=== PATIENT | male | born 1955 | race Caucasian/White ===

== ENCOUNTER 2024-11-23 11:21 | Observation (INO) ==
[2024-11-23] MEDS: CLINDAMYCIN IN 0.9 % SOD CHLOR 600 MG/50 ML BAG IV SCH ×2 (12:10→16:57)
[2024-11-23] MEDS: DEXAMETHASONE 10 MG/ML VIAL IV ONE (12:35)
[2024-11-23] MEDS: HYDROmorphone 1 MG/ML SYRINGE IV ONE (13:51)
[2024-11-23] MEDS ORDERED: BISACODYL 10 MG SUPP.RECT PR PRN (16:31)
[2024-11-23] MEDS ORDERED: oxyCODONE IR 5 MG TABLET PO PRN (16:31)
[2024-11-23] MEDS ORDERED: SENNOSIDES 1 TABLET PO PRN (16:31)
[2024-11-23] MEDS ORDERED: MAGNESIUM HYDROXIDE 30 ML ORAL.SUSP PO PRN (16:31)
[2024-11-23] MEDS ORDERED: ZOLPIDEM 5 MG TABLET PO PRN (16:31)
[2024-11-23] MEDS ORDERED: IBUPROFEN 600 MG TABLET PO PRN (16:31)
[2024-11-23] MEDS ORDERED: ACETAMINOPHEN 325 MG TABLET PO PRN (16:31)
[2024-11-23] MEDS ORDERED: HYDROmorphone 0.5 MG/0.5 ML SYRINGE IV PRN (16:31)
[2024-11-23] MEDS ORDERED: ONDANSETRON 4 MG/2 ML VIAL IV PRN (16:31)
[2024-11-23] MEDS: CARVEDILOL 6.25 MG TABLET PO SCH (17:19)
[2024-11-23] MEDS: SIMVASTATIN 10 MG TABLET PO SCH (21:07)
[2024-11-23] MEDS: 0.9 % SODIUM CHLORIDE 10 ML SYRINGE IV SCH (21:08)
[2024-11-23] MEDS: DEXAMETHASONE 10 MG/ML VIAL IV SCH (21:08)
[2024-11-24 06:17] LABS: Blood Urea Nitrogen 23 mg/dL (8-23); Calcium 9.3 mg/dL (8.6-10.4); Carbon Dioxide 23 mmol/L (22-30); Chloride 99 mmol/L (96-108); Glomerular Filtration Rate 93; Glucose 181 mg/dL (70-105); Potassium 4.1 mmol/L (3.3-5.1); Sodium 136 mmol/L (133-145)
[2024-11-24 06:50] LABS: Basophils # (Auto) 0.02 K/mcL (0.00-0.30); Basophils % (Auto) 0 % (0.0-2.0); Eosinophils # (Auto) 0.01 K/mcL (0.00-0.70); Eosinophils % (Auto) 0 % (0.0-7.0); Hematocrit 46.1 % (40.1-51.0); Hemoglobin 14.5 g/dL (13.7-17.5); Lymphocytes # (Auto) 26.51 K/mcL (1.50-4.80); Mean Cell Volume 92.9 fL (80.0-100.0); Mean Corpuscular HGB Conc 31.5 g/dL (31.0-36.0); Mean Platelet Volume 9.3 fL (8.8-12.5); Monocytes # (Auto) 6.07 K/mcL (0.10-0.90); Monocytes % (Auto) 13.1 % (1.0-12.0); Neutrophils % (Auto) 29.5 % (38.0-78.0); Platelet Count 149 K/mcL (140-440); RBC 4.96 M/mcL (4.63-6.08); Red Cell Distribution Width 13.9 % (11.5-14.5); WBC 46.5 K/mcL (4.5-11.0)
[2024-11-24] MEDS: LOSARTAN 25 MG TABLET PO SCH (08:11)
[2024-11-24] MEDS: ALLOPURINOL 100 MG TABLET PO SCH (08:12)
[2024-11-24] MEDS: ENOXAPARIN 40 MG/0.4 ML SYRINGE SQ SCH (08:13)
[2024-11-24 16:26] VITALS: TEMP 97.8; O2SAT 93
== END 2024-11-24 16:31 | disposition home or self-care (01) ==
LOC: ED 11:21 → MEDSUR 11:21 → OBSVTOIN 16:35 → INTOOBSV 16:35
PROVIDERS: ADMIT Internal Medicine; ATTEND Internal Medicine